=== PATIENT | female | born 1995 | race African-American/Black ===

== ENCOUNTER 2016-11-03 12:07 | Emergency (ER) | payer MEDICAID ==
[~2016-11-03] VITALS: Ht 160 cm; Wt 63.7 kg
[~2016-11-03 12:07] MED LIST: PREN0.01 PO
[2016-11-03 12:17] VITALS: BP 117/84; PULSE 80; RESP 16; TEMP 98.4; O2SAT 98
[2016-11-03] MEDS ORDERED: METR250 PO (12:41)
[2016-11-03] MEDS ORDERED: ACYC200C66 PO (12:48)
--- NOTE | 2016-11-03 12:49 | PD ---
HPI Chief Complaint: Tax Specialist Problem/Complaint Time Seen by Provider: 12:26 Travel History International Travel<30 days: No Contact w/Intl Traveler<30days: No Traveled to known affect area: No History of Present Illness HPI This is a 21-year-old female who presents to the emergency department with pain in her vagina that's been going on for 1 week, constant, moderate severity, associated with some burning when she urinates. She went to [facility] several days ago and no one did a exam but she was treated empirically for sexually transmitted disease with ceftriaxone, azithromycin and Flagyl. She's been taking Flagyl and she thinks is been making her nauseous. She says her vaginal pain as gotten worse and she's noticed that she has a sore on her vagina. She has had 2 partners in the past 6 months. She did have unprotected sex about a month ago. PFSH Past Medical History Medical History: Denies Significant Hx Diminished Hearing: No Immunizations Current: Yes Tetanus Vaccination: > 5 Years Influenza Vaccination: No ?: Not : 1 Para: 0 Past Surgical History Surgical History: No Previous Surgery Social History Alcohol Use: No Tobacco Use: No Substance Use: No Allergies-Medications (Allergen,Severity, Reaction): Coded Allergies: No Known Allergies (Verified , 11/03/16) Reported Meds & Prescriptions Reported Meds & Active Scripts Active Reported Flagyl (Metronidazole) 250 Mg Tab 250 Mg PO TID Review of Systems General / Constitutional: No: Fever, Chills Cardiovascular: No: Chest Pain or Discomfort Respiratory: No: Shortness of Breath Physical Exam Narrative GENERAL: Well-appearing, no acute distress, nontoxic SKIN: Warm and dry. HEAD: Atraumatic. Normocephalic. ENT: No nasal bleeding or discharge. Moist mucous membranes COMMISSIONED SECURITY OFFICER: Dark bloody discharge in the vault, ulcerations over the vault and along the inner vaginal canal MUSCULOSKELETAL: No obvious deformities. No clubbing. No cyanosis. No edema. NEUROLOGICAL: Awake and alert. No obvious cranial nerve deficits. Motor grossly within normal limits. Normal speech. PSYCHIATRIC: Appropriate mood and affect; insight and judgment normal. Data Data Last Documented VS Vital Signs Date Time Temp Pulse Resp B/P Pulse Ox O2 Delivery O2 Flow Rate FiO2 11/03/16 12:17 98.4 80 16 117/84 98 Orders Gc And Chlamydia Pcr (11/03/16 12:41) Wet Prep Profile (11/03/16 12:41) MDM Medical Decision Making Medical Screen Exam Complete: Yes Emergency Medical Condition: Yes Interpretation(s) Afebrile, no tachycardia, normotensive Differential Diagnosis Herpes, gonorrhea, chlamydia, Trichomonas Narrative Course This is a 21-year-old female who presents to the emergency department with vaginal discomfort. She was treated for cervicitis at an outside hospital earlier this week. Pelvic exam demonstrates ulcerations consistent with HSV. Patient will be treated with acyclovir and was given [facility] with [facility]. Diagnosis Primary Impression: Genital HSV Qualified Code: A60.04 - Herpes simplex vulvovaginitis Patient Instructions: General Instructions Additional Instructions: If you develop fever, chills, severe abdominal pain, persistent vomiting or inability to eat return to the emergency department. Your pelvic exam today did not include a Pap smear. It is important to followup with a surgical supply assistant on a yearly basis to be tested for cervical cancer as we do not do that from the emergency department. If there is a concern that you have sexually transmitted disease, your partner should be tested. You should followup with your surgical supply assistant or with the health department to get tested for other sexually transmitted diseases like HIV and syphilis, as we do not test for these in the emergency department Follow up with [facility] at: Follow up with: [facility] [address] [place] [address] Office Hours Wednesday - 9:00 am - 5:30 pm Wednesday 8:00 am - 12:00 pm Teen Tuesdays 4:00 - 6:30 pm Med/Other Pt SpecificInfo: Prescription(s) given Scripts Acyclovir 200 Mg [id number] Mg PO 5 TIMES A DAY 10 Days Ref 0 Prov:Maria Guadalupe Diallo MD 11/03/16 Disposition: 01 DISCHARGE HOME Condition: Stable Maria Guadalupe Diallo MD November 03, 2016 12:49
[2016-11-03 18:03] LABS: CHLAMYDIA PCR NOT DETECTED (NOT DETECT); NEISSERIA PCR NOT DETECTED (NOT DETECT)
== END 2016-11-03 12:56 | disposition home or self-care (01) ==
LOC: PHED 12:07
DX: A60.04 Herpesviral vulvovaginitis (principal)
CPT/HCPCS: 87210; 87491; 87591; 99284

== ENCOUNTER 2016-12-01 14:43 | Emergency (ER) | payer MEDICAID ==
[~2016-12-01] VITALS: Ht 160 cm; Wt 60.0 kg
[~2016-12-01 14:43] MED LIST changes: +ACYC200C66 PO; +METR250 PO; -PREN0.01 PO
[2016-12-01 14:47] VITALS: BP 104/66; PULSE 79; RESP 16; TEMP 99.4; O2SAT 98
[2016-12-01] MEDS ORDERED: ACYC800T PO (15:07)
--- NOTE | 2016-12-01 15:08 | PD ---
HPI Chief Complaint: Architecture Intern Problem/Complaint Time Seen by Provider: 14:57 Travel History International Travel<30 days: No Contact w/Intl Traveler<30days: No Traveled to known affect area: No History of Present Illness HPI This 21-year-old female is complaining of a herpes outbreak. She was here in October diagnoses of herpes. She has not had sex since then. She was treated with acyclovir and improved. She has had a second second outbreak the last few days. PFSH Past Medical History Diminished Hearing: No Immunizations Current: Yes Sickle Cell Disease: Yes (TRAIT) Tetanus Vaccination: < 5 Years Influenza Vaccination: Yes ?: Not LMP: OCTOBER 23 : 1 Para: 0 Past Surgical History Surgical History: No Previous Surgery Social History Alcohol Use: No Tobacco Use: No Substance Use: No Allergies-Medications (Allergen,Severity, Reaction): Coded Allergies: No Known Allergies (Verified , 12/01/16) Reported Meds & Prescriptions Reported Meds & Active Scripts Active No Active Prescriptions or Reported Medications Review of Systems General / Constitutional: No: Fever, Chills Eyes: No: Diploplia Cardiovascular: No: Chest Pain or Discomfort Gastrointestinal: No: Nausea Musculoskeletal: No: Myalgias Skin: Positive Rash Hematologic/Lymphatic: No: Easy Bruising Physical Exam Narrative GENERAL: Well-developed female SKIN: Focused skin assessment warm/dry. HEAD: Atraumatic. Normocephalic. EYES: Pupils equal and round. No scleral icterus. No injection or drainage. ENT: No nasal bleeding or discharge. Mucous membranes pink and moist. On inspection of the external genitalia there is an ulceration seen consistent with genital herpes MUSCULOSKELETAL: No obvious deformities. No clubbing. No cyanosis. No edema. NEUROLOGICAL: Awake and alert. No obvious cranial nerve deficits. Motor grossly within normal limits. Normal speech. PSYCHIATRIC: Appropriate mood and affect; insight and judgment normal. Data Data Last Documented VS Vital Signs Date Time Temp Pulse Resp B/P Pulse Ox O2 Delivery O2 Flow Rate FiO2 12/01/16 14:47 99.4 79 16 104/66 98 MDM Medical Decision Making Medical Screen Exam Complete: Yes Emergency Medical Condition: Yes Medical Record Reviewed: Yes Differential Diagnosis Differential includes genital herpes outbreak Narrative Course Patient will be treated with acyclovir 800 twice a day 5 days Diagnosis Primary Impression: Genital HSV Qualified Code: A60.04 - Herpes simplex vulvovaginitis Scripts Acyclovir 800 Mg [id number] Mg PO BID 5 Days Ref 0 Prov:Dakota Moyer MD 12/01/16 Disposition: 01 DISCHARGE HOME Condition: Stable Dakota Moyer MD Dec 01, 2016 15:08
== END 2016-12-01 15:15 | disposition home or self-care (01) ==
LOC: PHED 14:43
DX: A60.04 Herpesviral vulvovaginitis (principal); D57.3 Sickle-cell trait
CPT/HCPCS: 99283